=== PATIENT | male | born 1975 | race Caucasian/White ===

== ENCOUNTER 2024-01-04 23:51 | Emergency (ER) | payer BC, SELFPAY ==
[2024-01-04 23:57] VITALS: BP 122/71
--- NOTE | 2024-01-05 01:40 | ED.GENMED ---
History of Present Illness
General
Chief Complaint: Musculo-Skeletal Complaint
Source: patient
Time Seen by Provider: 01/05/24 00:41
Travel History
Have you had any contact with someone who has COVID-19?: No
Do you have any symptoms of coronavirus? Fever > 100 degrees, chills, cough, shortness of breath, sore throat, loss of taste or smell, muscle aches, or headache?: No
History of Present Illness
History of Present Illness:
48-year-old male who admits to drinking alcohol with friends tonight. He was walking and tripped, denies any preceding symptoms, did not hit his head, but noted L elbow pain. He did not get up, called EMS from ground, and borught here for care.
He denies numbness, tingling, weakness, neck pain, cp, sob, loc, headache, or other copmlnts.
Past History
Past History
ED Past Medical History: HTN
Social History
Tobacco: Non-smoker
Alcohol: Occasional
Drug: None
Living: with family
Employment: Employed
Phy Exam
Physical Exam
Physical Exam:
GENERAL: Alert , in no apparent distress
EYE: pupils equal and reactive
NECK: Supple, no significant adenopathy.
ENT: o/p clr, mmm.
CARDIAC: Regular rate and rhythm .
LUNGS: Clear breath sounds bilaterally, no acute respiratory distress, no wheezes/rales/rhonchi
ABDOMEN: Soft, without focal tenderness, no r/g
NEUROLOGICAL: Alert and oriented, no focal neuro deficits, speech sl slurred (I suspect related to etoh use) but otherwise neuro intact
SKIN: Warm and dry, skin intact.
MUSCULOSKELETAL: Well perfused. L elbow with obvious deformity, no break in skin, no sens loss, no bleeding. No abnl noted on exam of wrist/hand/forearm/shoulder.
PSYCH: Normal and appropriate interaction.
Course
Orders/Labs/Results
Orders:
Orders
01/05/24 00:06
CR Forearm - Left 2 View Urgent
Comment:
Reason For Exam: fall/deformity
01/05/24 01:42
CR Elbow - Right Min 2 View Urgent
Comment:
Reason For Exam: post reduction
Vital Signs
Initial and Last Documented VS:
Initial Vital Signs
Temp Pulse Resp BP Pulse Ox
97.6 F 70 18 122/71 100
01/04/24 23:57 01/04/24 23:57 01/04/24 23:57 01/04/24 23:57 01/04/24 23:57
Last Documented Vital Signs
Temp Pulse Resp BP Pulse Ox
97.6 F 72 18 145/61 100
01/04/24 23:57 01/05/24 03:02 01/04/24 23:57 01/05/24 03:02 01/05/24 03:02
Procedures
Splinting/Sling Placement
Left Elbow:
Procedure completed by: Samuel Mendez MD
Pre-splint extermity exam: good alignment
Type of splint: sundar wrap and posterior long arm
Splint checked by provider?: Yes
Type of sling: sling fitted
Normal distal neurovascular exam?: Yes
Joint/Fracture Reduction
Left Elbow:
Indication for procedure:: ELBOW DISLOCATION
Procedure completed by: SAMUEL MENDEZ MD
Consent form signed: No
Joint reduced: with anesthesia sedation
Anesthesia/sedation: Other (HEMATOMA BLOCK WITH 10 ML BUPIVICAINE)
Injury was: closed
Further treatement: no treatment needed
Post reduction exam: stable
Capillary Refill: normal
Normal distal neurovascular exam?: Yes
*Critical Care Note
Total Time (30-74mins, 75-104mins- exclusive of procedures): Not Applicable
Update Note
Update Note:
Patient presents to the Emergency Department with left elbow pain and deformity after a fall
Number and Complexity of Problems Addressed at the Encounter
� Chronic conditions affecting care:
� Acute Exacerbation and/or Progression of Chronic Illness:
� Differential Diagnosis includes: But not limited to elbow fracture, dislocation, etc.
Amount and/or Complexity of Data to be Reviewed and Analyzed
� I performed an independent evaluation of and my interpretation is:
EKG:
CT:
Xrays: Left anterior elbow dislocation noted no fracture seen
Laboratory Studies:
Other:
� Review of other/old records reveals:
� Clinical information was obtained by an independent historian:
� Prescriptions/Medications Considered but not given:
� Further testing considered but not performed:
Risk of Complications and/or Morbidity or Mortality of Patient Management
� Social determinants of health affecting care:
� Discussion with other providers (PCP, Hospitalists, Consultants, etc):
� Escalation of care including admission/observation vs risk of discharge considered:159 AM Hematoma block performed by me, injected 10 mL of bupivicaine...then reduction with Dotty Anderson RN and Annamarie DEVINE present. [place]
reduced, splint and sling applied, post red xray confirms reduction. No fx noted. Pt will be advised to f/u with ortho .
ED Attending Note
-
Portions of this chart may have been created with voice recognition software.� Occasional wrong word or��sound alike� substitutions may have occurred due to the inherent limitations of voice recognition software.
Discharge Plan
Departure
Patient Disposition: Home (Routine Discharge)
Date of Disposition: 01/05/24
Time of Disposition: 02:00
Patient with high blood pressure during this ER visit?: Yes
Condition: Good
Discharge Problem:
Dislocated elbow
Instructions: How to Use a Shoulder Sling, Splint Care, Dislocated Elbow, BLOOD PRESSURE
Referrals:
Igor Bey MD [Active] - Follow up in 2-3 days
Virgilio Alfaro MD [Family Provider] -
Activity Restrictions/Additional Instructions:
IF YOU DEVELOP NUMBNESS, INCREASING/NEW/PERSISTENT PAIN, FEVER, VOMITING, CHEST PAIN, OR OTHER WORRISOME SIGNS, GO TO THE ER IMMEDIATELY!
Interventions
Interventions:
*Risk Screen - Suicide Last Done: 01/04/24 23:57
*General Assessment Last Done: 01/04/24 23:57
*Neglect/Abuse Screening Last Done: 01/04/24 23:57
*ED COVID-19 Vaccine History Last Done: 01/05/24 00:53
*Nursing Disposition Last Done: 01/05/24 03:02
ED-Musculoskeletal Assessment Last Done: 01/05/24 00:50
Discharge Date and Time
Discharge Date/Time: 01/05/24 03:03
Print Language: CITIZEN [place]
[2024-01-05 03:02] VITALS: BP 145/61
== END 2024-01-05 03:03 | disposition home or self-care (01) ==
LOC: EMR 23:51
PROVIDERS: EMERGENCY PHYSICIAN Emergency Medicine; FAMILY PHYSICIAN Family Medicine
DX: S53.105A Unspecified dislocation of left ulnohumeral joint, initial encounter (principal); W01.0XXA Fall on same level from slipping, tripping and stumbling without subsequent striking against object, initial encounter; Y93.01 Activity, walking, marching and hiking; F10.90 Alcohol use, unspecified, uncomplicated; I10 Essential (primary) hypertension
CPT/HCPCS: 64450; 99284; 24600; 73070; 73090

== ENCOUNTER 2024-04-20 06:24 | Day surgery (SDC) | payer BC, SELFPAY ==
[2024-04-15 13:29] VITALS: BMI 50.7
[2024-04-20] VITALS (8 sets, daily range): BP systolic 99–154; BP diastolic 42–79; BMI 50.7
[2024-04-20] MEDS: CELEBREX 200 MG PO (09:27)
[2024-04-20] MEDS: TYLENOL 1000 MG PO (09:27)
[2024-04-20] MEDS: NORMOSOL-R 1000 IV (09:39)
[2024-04-20] MEDS: DILAUDID 0.25 MG IV ×2 (14:53→15:11)
== END 2024-04-20 16:20 | disposition home or self-care (01) ==
LOC: SDS 06:24
PROVIDERS: ATTENDING PHYSICIAN Orthopaedic Surgery; FAMILY PHYSICIAN Family Medicine
DX: S53.105A Unspecified dislocation of left ulnohumeral joint, initial encounter (principal); S46.312A Strain of muscle, fascia and tendon of triceps, left arm, initial encounter; X58.XXXA Exposure to other specified factors, initial encounter
CPT/HCPCS: 24346; 24000; 24342; 36415; 93005